=== PATIENT | female | born 1965 | race Caucasian/White ===

== ENCOUNTER → 2017-10-17 | Outpatient (REF) | payer BC, OTHER | LOC: M LAB REF 19:37 | DX: J02.9 Acute pharyngitis, unspecified (principal) | CPT/HCPCS: 87081 ==

== ENCOUNTER → 2018-06-05 | Outpatient (REF) | payer OTHER ==
[2018-06-05 18:18] LABS: RHEUMATOID FACTOR QUANT < 10.0 IU/ML (<15.0)
[2018-06-08 00:09] LABS: CYCLIC CITRULLINATED PEPTIDE 5 units (0-19)
[2018-06-08 00:09] LABS: ANTI DOUBLE STRAND-DNA AB <1 IU/mL (0-9); ANTINUCLEAR ANTIBODIES DIRECT Positive (Negative); RNP ANTIBODIES <0.2 AI (0.0-0.9); SJOGREN'S ANTI SS-A >8.0 AI (0.0-0.9); SJOGREN'S ANTI SS-B <0.2 AI (0.0-0.9); SMITH ANTIBODIES <0.2 AI (0.0-0.9)
== END ==
LOC: M LAB REF 16:47
DX: M25.50 Pain in unspecified joint (principal)

== ENCOUNTER → 2018-06-28 | Outpatient (REF) | payer OTHER | LOC: M LAB REF 10:09 | DX: J02.9 Acute pharyngitis, unspecified (principal) | CPT/HCPCS: 87070 ==

== ENCOUNTER → 2018-11-29 | Outpatient (CLI) | payer BC, OTHER ==
[~2018-11-29] MED LIST: AMOXICILLIN XX; TRAVATAN OU; TYLENOL #3 ELIXIR PO; VICO5TAB OR
--- NOTE | 2018-11-30 03:15 | REP ---
Clinical: Bilateral pain Technique: AP, lateral, bilateral oblique views of the right and left hand. Findings: Essentially symmetric bilateral mild arthritic changes include subchondral sclerosis and joint space narrowing predominantly involving the interphalangeal joints with a very subtle early spurring involving the bilateral distal interphalangeal joints. Mild sclerosis along the bilateral radial articular surfaces with subtle radiocarpal joint space narrowing is also appreciated. Remainder examination appears essentially age-appropriate bilaterally. 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 Electronically Signed by Ricardo Sheldon MD 11/30/2018 03:06 A
== END ==
LOC: M WUC 13:40
PROVIDERS: ATTEND Internal Medicine Rheumatology
DX: M19.041 Primary osteoarthritis, right hand (principal)

== ENCOUNTER → 2022-05-10 | Outpatient (CLI) | payer BC, OTHER | LOC: M RAD 18:21 | PROVIDERS: ATTEND Physician Assistant Medical | DX: S69.91XA Unspecified injury of right wrist, hand and finger(s), initial encounter (principal) ==

== ENCOUNTER → 2022-10-11 | Outpatient (CLI) | payer BC, OTHER ==
[2022-10-11 17:23] LABS: HEMATOCRIT 40.1 % (36.0-47.0); MEAN CORPUSCULAR HEMOGLOBIN 27.8 pg (27.0-33.0); MEAN CORPUSCULAR HGB CONC 32.4 g/dl (32.0-36.5); MEAN CORPUSCULAR VOLUME 85.9 fl (80.0-96.0); PLATELET COUNT, AUTOMATED 289 10^3/uL (150-450); RED BLOOD COUNT 4.67 10^6/uL (4.00-5.40); WHITE BLOOD COUNT 7.9 10^3/uL (4.0-10.0)
[2022-10-11 17:55] LABS: ALBUMIN 3.6 G/DL (3.2-5.2); ALKALINE PHOSPHATASE 104 U/L (46-116); ALT/SGPT 37 U/L (7.0-40); AST/SGOT 22 U/L (<34); BILIRUBIN,TOTAL 0.5 MG/DL (0.3-1.2); BLOOD UREA NITROGEN 18 MG/DL (9-23); CALCIUM LEVEL 9.2 MG/DL (8.5-10.1); CARBON DIOXIDE LEVEL 29 MMOL/L (20-31); CHLORIDE LEVEL 103 MMOL/L (98-107); CREATININE FOR GFR 0.61 MG/DL (0.55-1.30); GLOMERULAR FILTRATION RATE > 60.0 (>51); GLUCOSE, FASTING 281 MG/DL (60-100); POTASSIUM SERUM 4.1 MMOL/L (3.5-5.1); SODIUM LEVEL 139 MMOL/L (136-145); TOTAL PROTEIN 7.1 G/DL (5.7-8.2)
== END ==
LOC: M LAB 15:08
PROVIDERS: ATTEND Physician Assistant
DX: L92.0 Granuloma annulare (principal)

== ENCOUNTER → 2023-01-10 | Outpatient (CLI) | payer BC, OTHER ==
[2023-01-10 14:18] LABS: HEMATOCRIT 40.8 % (36.0-47.0); HEMOGLOBIN 13.4 g/dl (12.0-15.5); MEAN CORPUSCULAR HGB CONC 32.8 g/dl (32.0-36.5); MEAN CORPUSCULAR VOLUME 85.4 fl (80.0-96.0); PLATELET COUNT, AUTOMATED 322 10^3/uL (150-450); RED BLOOD COUNT 4.78 10^6/uL (4.00-5.40); WHITE BLOOD COUNT 10.1 10^3/uL (4.0-10.0)
[2023-01-11 15:13] LABS: G6PD2 4.73 x10E6/uL (3.77-5.28)
== END ==
LOC: M LAB 13:19
PROVIDERS: ATTEND Physician Assistant
DX: L92.0 Granuloma annulare (principal)

== ENCOUNTER → 2023-03-23 | Outpatient (CLI) | payer BC, OTHER ==
[2023-03-23 15:18] LABS: BASO # 0.1 10^3/uL (0.0-0.2); BASO % 0.8 % (0.0-1.0); EOS # 0.2 10^3/uL (0.0-0.5); EOS % 2.5 % (0.0-3.0); HEMATOCRIT 35.2 % (36.0-47.0); HEMOGLOBIN 11.1 g/dl (12.0-15.5); LYMPH # 2.3 10^3/uL (1.5-5.0); LYMPH % 31.4 % (24.0-44.0); MEAN CORPUSCULAR HEMOGLOBIN 28.8 pg (27.0-33.0); MEAN CORPUSCULAR HGB CONC 31.5 g/dl (32.0-36.5); MEAN CORPUSCULAR VOLUME 91.4 fl (80.0-96.0); MONO # 0.4 10^3/uL (0.0-0.8); MONO % 5.1 % (2.0-8.0); NEUTROPHILS # 4.4 10^3/uL (1.5-8.5); NEUTROPHILS % 59.8 % (36.0-66.0); PLATELET COUNT, AUTOMATED 289 10^3/uL (150-450); RED BLOOD COUNT 3.85 10^6/uL (4.00-5.40); WHITE BLOOD COUNT 7.3 10^3/uL (4.0-10.0)
[2023-03-23 15:49] LABS: ALBUMIN 3.9 G/DL (3.2-5.2); BILIRUBIN,DIRECT 0.5 MG/DL (<0.4); BILIRUBIN,TOTAL 1.4 MG/DL (0.3-1.2)
== END ==
LOC: M LAB 14:28
PROVIDERS: ATTEND Physician Assistant
DX: L92.0 Granuloma annulare (principal)

== ENCOUNTER → 2025-03-11 | Outpatient (CLI) | payer BC ==
[~2025-03-11] MED LIST changes: +ACET-683 PO; +ALBU8.5H INH; +ATOR1TAB19 PO; +LOSA100T46 PO; +METF-839 PO; +OXYB2.5T PO; +TIRZ2.5P SC; +TRAV04OPD OU; +VENL37.52 PO
== END ==
LOC: M SOG 06:55
PROVIDERS: ATTEND Physician Assistant
DX: M25.562 Pain in left knee (principal)